=== PATIENT | female | born 1965 | race African-American/Black ===

== ENCOUNTER → 2016-05-12 | Outpatient (CLI) | payer MEDICAID | LOC: OD 11:27 | PROVIDERS: ATTEND Family Medicine | DX: R59.1 Generalized enlarged lymph nodes (principal) | CPT/HCPCS: 71020 ==

== ENCOUNTER 2017-04-03 07:57 | Emergency (ER) | payer SELFPAY ==
[2017-04-03 08:02] VITALS: BP 126/67
--- NOTE | 2017-04-03 08:19 | ER Document Report ---
ED Neck/Back Problem - General Chief Complaint: Back Pain Stated Complaint: BACK PAIN Time Seen by Provider: 04/03/17 08:17 Notes: She states that she has had back pain in the past. States that she felt a pop in the left lower back. Radiating. Moderate. Nothing seems to make it better or worse stiff in the morning but seems to get better throughout the day. No change in bowel or bladder function other than the fact that she does not want to have a bowel movement because she is afraid of pushing because it hurts when she has to bear down. No urinary retention. No numbness, tingling, loss of sensation of the lower extremities. No fever, chills, sweats. No IV drug use or risk for epidural hematoma or abscess. TRAVEL OUTSIDE OF THE [place] IN LAST 30 DAYS: No - HPI Patient complains to provider of: Pain Where: Home Timing: Constant Quality of pain: Achy Severity: Moderate Pain Level: 4 Context: denies: Became dizzy Associated symptoms: None Exacerbated by: Other - Movement, bending, walking - Related Data Allergies/Adverse Reactions: Penicillins Allergy (Severe, Verified 04/03/17 07:59) Anaphylaxis ibuprofen [From Motrin] Allergy (Mild, Verified 04/03/17 07:59) RASH, HIVES tramadol [Tramadol] Allergy (Mild, Verified 04/03/17 07:59) HIVES, RASH Past Medical History - General Information source: Patient - Social History Smoking Status: Former Smoker Frequency of alcohol use: None Drug Abuse: None Lives with: Family Family History: Reviewed & Not Pertinent - Past Medical History Cardiac Medical History: Denies: Hx Coronary Artery Disease, Hx Heart Attack, Hx Hypertension Pulmonary Medical History: Reports: Hx COPD Denies: Hx Asthma, Hx Bronchitis, Hx Pneumonia Neurological Medical History: Denies: Hx Cerebrovascular Accident, Hx Seizures Renal/ Medical History: Denies: Hx Peritoneal Dialysis Musculoskeltal Medical History: Reports Hx Arthritis Past Surgical History: Reports: Hx Breast Surgery - reduction, Hx Section, Hx Cholecystectomy, Hx Hysterectomy - Immunizations Hx Diphtheria, Pertussis, Tetanus Vaccination: Yes Review of Systems - Review of Systems Constitutional: No symptoms reported EENT: No symptoms reported Cardiovascular: No symptoms reported Respiratory: No symptoms reported Gastrointestinal: No symptoms reported Genitourinary: No symptoms reported Female Genitourinary: No symptoms reported Musculoskeletal: Back pain Skin: No symptoms reported Hematologic/Lymphatic: No symptoms reported Neurological/Psychological: No symptoms reported Physical Exam - Vital signs Vitals: Temp Pulse Resp BP Pulse Ox 97.9 F 105 H 18 126/67 H 100 04/03/17 08:01 04/03/17 08:01 04/03/17 08:01 04/03/17 08:01 04/03/17 08:01 Interpretation: Normal - General General appearance: Appears well, Alert - HEENT Head: Normocephalic, Atraumatic Eyes: Normal Pupils: PERRL - Respiratory Respiratory status: No respiratory distress Chest status: Nontender Breath sounds: Normal Chest palpation: Normal - Cardiovascular Rhythm: Regular Heart sounds: Normal auscultation Murmur: No - Abdominal Inspection: Normal Distension: No distension Bowel sounds: Normal Tenderness: Nontender Organomegaly: No organomegaly - Back Back: Normal, Tender - Left paraspinal muscles in the lumbar spine. No: Deformity/step-off, CVA tenderness, Vertebra tenderness, Scoliosis - Extremities General upper extremity: Normal inspection, Nontender, Normal color, Normal ROM , Normal temperature General lower extremity: Normal inspection, Nontender, Normal color, Normal ROM , Normal temperature, Normal weight bearing. No: Thanh's sign - Neurological Neuro grossly intact: Yes Cognition: Normal Orientation: AAOx4 Ruiz Coma Scale Eye Opening: Spontaneous Ruiz Coma Scale Verbal: Oriented [place] Coma Scale Motor: Obeys Commands Ruiz Coma Scale Total: 15 Speech: Normal Motor strength normal: LUE, RUE, LLE, RLE Sensory: Normal - Psychological Associated symptoms: Normal affect, Normal mood - Skin Skin Temperature: Warm Skin Moisture: Dry Skin Color: Normal Course - Re-evaluation Re-evalutation: 04/03/17 08:38 Review of patient's prescription monitoring reveals no large amount of controlled substance use. Discussed options with patient. We have decided at this time to try anti-inflammatories and muscle relaxants. Patient seems comfortable with this plan. States that she is allergic to ibuprofen but has had Toradol and aspirin and naproxen without issues so will prescribe some Naprosyn and Valium at this time. Patient advised not to use alcohol or drive while taking Valium. Advised to return for any red flag warning signs which were given. Will DC at this time. 04/03/17 09:28 Laboratory 04/03/17 08:43 Urine Color STRAW Urine Appearance SLIGHTLY-CLOUDY Urine pH 7.0 Ur Specific [facility] 1.005 Urine Protein NEGATIVE Urine Glucose (UA) NEGATIVE Urine Ketones NEGATIVE Urine Blood NEGATIVE Urine Nitrite NEGATIVE Urine Bilirubin NEGATIVE Urine Urobilinogen NEGATIVE Ur Leukocyte Esterase NEGATIVE Urine WBC (Auto) 2 Urine RBC (Auto) 3 Squamous Epi Cells Auto 5 Urine Mucus (Auto) RARE Urine Ascorbic Acid NEGATIVE - Vital Signs Vital signs: Temp Pulse Resp BP Pulse Ox 97.9 F 105 H 18 126/67 H 100 04/03/17 08:01 04/03/17 08:01 04/03/17 08:01 04/03/17 08:01 04/03/17 08:01 Discharge - Discharge Clinical Impression: Back pain Qualifiers: Back pain location: low back pain Chronicity: acute Back pain laterality: left Sciatica presence: without sciatica Qualified Code(s): M54.5 - Low back pain Condition: Stable Disposition: HOME, SELF-CARE Instructions: Ice Packs ([facility]), Low Back Pain ([facility]), Pain Medication Injection ( [facility]) Additional Instructions: Low Back Pain Three out of every four people will have an episode of disabling back pain during their lifetime. Most commonly the pain is due to straining of the muscles and ligaments in the low back. Usual treatment includes: (1) Rest on a firm surface. Avoid lying on your stomach. (2) Ice pack the painful area. After a few days, gentle heat may be used intermittently to relax the area, or ice packs can be continued. (3) Medication may be needed -- muscle relaxers and antiinflammatory medicines are commonly used. (4) As the back improves, exercises are prescribed to strengthen the back and abdominal muscles. Your doctor will advise you on the proper care for your back at each stage in your recovery. You may be better in a few days -- or healing may take several weeks. If new symptoms of a "herniated disc" (radiation of pain, numbness, or tingling down the back of the leg or weakness in the leg) occur, you should be re-examined. Further testing may be necessary. Prescriptions: Diazepam [Valium 5 mg Tablet] 5 mg PO BID 5 Days #15 tablet Naproxen [Naprosyn 375 Mg Tablet] 375 mg PO BID 15 Days #30 tablet
[2017-04-03] MEDS ORDERED: KETOROLAC TROMETHAMINE INJ/PF 30 MG/1 ML SDV IM ONE (08:35)
[2017-04-03 09:01] LABS: APPEARANCE,URINE SLIGHTLY-CLOUDY; BILIRUBIN,URINE NEGATIVE (NEGATIVE); COLOR,URINE STRAW; GLUCOSE, URINE NEGATIVE (NEGATIVE); KETONES,URINE NEGATIVE (NEGATIVE); LEUKOCYTE ESTERASE,URINE NEGATIVE (NEGATIVE); NITRITE,URINE NEGATIVE (NEGATIVE); PROTEIN,URINE NEGATIVE (NEGATIVE); URINE SPECIFIC GRAVITY 1.005; UROBILINOGEN,URINE NEGATIVE mg/dL (<2.0)
== END 2017-04-03 08:48 | disposition home or self-care (01) ==
LOC: ER 07:57
DX: M54.5 Low back pain (principal); Z88.6 Allergy status to analgesic agent; Z88.5 Allergy status to narcotic agent; Z87.892 Personal history of anaphylaxis; Z88.0 Allergy status to penicillin; Z87.891 Personal history of nicotine dependence
CPT/HCPCS: 99283; 96372; 81001; J1885

== ENCOUNTER → 2019-07-30 | Outpatient (CLI) | payer BC ==
--- NOTE | 2019-07-30 09:43 | ER [facility] ASSESSMENT REPORT ---
Intake - In the Last 14 days Have you traveled outside [place]?: No Have you been in close contact with someone CONFIRMED: No Worked in Healthcare?: Yes - Symptoms Subjective Fever([place] feverish): No Chills: No Muscule Aches: No Runny Nose: No Sore Throat: No Cough (New or worsening chronic cough): No Shortness of breath: No Nausea or Vomiting: No Headache: No Abdominal Pain: Yes Diarrhea(3 or more loose stools in last 24 hours): Yes - Do you have any of the following Chronic lung disease: Asthma or emphysema or COPD: Yes Chronic Lung Disease Comment: copd Cystic Fibrosis: No Diabetes: No High Blood Pressure: No Cardiovascular Disease: No Chronic Kidney Disease: No Chronic Liver Disease: No Chronic blood disorder like Sickle Cell Disease: No Weak immune system due to disease or medication: No Neurologic condition that limits movement: No Developmental delay - Moderate to Severe: No Recent (within past 2 weeks) or current : No Morbid Obesity (>100 pounds over ideal weight): No - Objective Temperature: 97.0 F Pulse Rate: 86 Respiratory Rate: 18 Blood Pressure: 114/62 O2 Sat by Pulse Oximetry: 99 Objective: Given above, testing performed: If Testing Performed: Test Specimen Type Sent to General - General Information source: Patient Notes: Patient presents to the [facility] for evaluation and screening for the COVID. Patient reports abdominal pain and diarrhea symptoms that started yesterday. Patient does have underlying history of COPD and does smoke. Patient works in [employer]. - HPI Onset: Yesterday Associated symptoms: Diarrhea. denies: Fever Exacerbated by: Denies Relieved by: Denies - Related Data Allergies/Adverse Reactions: Penicillins Allergy (Severe, Verified 04/03/17 07:59) Anaphylaxis ibuprofen [From Motrin] Allergy (Mild, Verified 04/03/17 07:59) RASH, HIVES tramadol [Tramadol] Allergy (Mild, Verified 04/03/17 07:59) HIVES, RASH Past Medical History - General Information source: Patient - Social History Smoking Status: Current Every Day Smoker Occupation: healthcare Family History: Reviewed & Not Pertinent - Past Medical History Cardiac Medical History: Denies: Hx Coronary Artery Disease, Hx Heart Attack, Hx Hypertension Pulmonary Medical History: Reports: Hx COPD Denies: Hx Asthma, Hx Bronchitis, Hx Pneumonia Neurological Medical History: Denies: Hx Cerebrovascular Accident, Hx Seizures Renal/ Medical History: Denies: Hx Peritoneal Dialysis Musculoskeletal Medical History: Reports Hx Arthritis Past Surgical History: Reports: Hx Breast Surgery - reduction, Hx Section, Hx Cholecystectomy, Hx Hysterectomy Physical Exam - Notes Notes: Full physical exam could not be performed due to covid 19 isolation protocols. Constitutional: Nontoxic appearance, no acute distress - General General appearance: Appears well, Alert In distress: None - HEENT Head: Normocephalic, Atraumatic Nasal: Normal Mouth/Lips: Normal Pharynx: Normal. No: Erythema, Exudate Neck: Normal, Supple. No: Lymphadenopathy - Respiratory Respiratory status: No respiratory distress Chest status: Nontender Breath sounds: Normal. No: Rales, Rhonchi, Stridor, Wheezing Chest palpation: Normal - Cardiovascular Rhythm: Regular Heart sounds: S1 appreciated, S2 appreciated - Abdominal Distension: No distension - Extremities General upper extremity: Normal inspection, Normal ROM General lower extremity: Normal inspection, Normal ROM - Neurological Neuro grossly intact: Yes Cognition: Normal Orientation: AAOx4 Ruiz Coma Scale Eye Opening: Spontaneous Ruiz Coma Scale Verbal: Oriented Ruiz Coma Scale Motor: Obeys Commands Ruiz Coma Scale Total: 15 - Psychological Associated symptoms: Normal affect, Normal mood - Skin Skin Temperature: Warm Skin Moisture: Dry Skin Color: Normal Diagnostic Results Laboratory Results: The patient was evaluated during the global Covid 19 pandemic, and that diagnosis was suspected/considered upon their initial presentation. Their evaluation, treatment and testing was consistent with current guidelines for patients who present with complaints or symptoms that may be related to Covid 19. Patient presents with upper respiratory symptoms worrisome for possible Covid 19. Patient does not have emergency worrying symptoms such as difficulty breathing, shortness of breath, chest pain, pressure, confusion or cyanosis. Patient appears suitable for discharge as they are not of an advanced age, do not have any chronic medical conditions such as diabetes, CAD, immune deficiency, chronic lung disease or chronic kidney disease. Patient's vital signs are stable and patient is nontoxic in appearance. Good return precautions have been discussed with patient, patient verbalized understanding and is agreeable with discharge plan of care at this time. Patient Education/Counseling Counseling/Education: Patient was provided with discharge information including: As a person under investigation for Covid 19, the [facility] of Health and Human Services, division of public health advises you to adhere to the following guidance until your test results are reported to you. If your test result is positive, you will receive additional information from your provider and your local health department at that time. Remain at home until you are cleared by the health provider or public health authorities. Keep a log of visitors to your home, notify any visitors to your home of your isolation status. If you plan to move to a new address or leave the county, notify the local health department in your County. Call your doctor or seek care if you have an urgent medical need. Before seeking medical care, call ahead to get instructions from the provider before arriving at the medical office clinic or hospital. Notify them that you are being tested for the virus that causes Covid 19 so that arrangements can be made, as necessary, to prevent transmission to others in the healthcare setting. Next, notify the local health department in your county. If a medical emergency arises and you need to call 911, inform the first responders that you are being tested for the virus that causes Covid 19. Next, notify the local health department in your county. [facility] Discharge - Discharge Clinical Impression: covid 9 screening Condition: Stable Disposition: Home; Selfcare
[2019-07-30 10:24] VITALS: BP 114/62
[2019-07-30 11:48] LABS: A TYPE INFLUENZA AG NEGATIVE (NEGATIVE); B INFLUENZA AG NEGATIVE (NEGATIVE)
== END ==
LOC: RDC 09:40
PROVIDERS: ATTEND Nurse Practitioner Family
DX: J06.9 Acute upper respiratory infection, unspecified (principal); Z20.828 Contact with and (suspected) exposure to other viral communicable diseases; R50.9 Fever, unspecified; R06.02 Shortness of breath; J02.9 Acute pharyngitis, unspecified; R11.2 Nausea with vomiting, unspecified; R10.9 Unspecified abdominal pain; R19.7 Diarrhea, unspecified; R51 Headache; J44.9 Chronic obstructive pulmonary disease, unspecified; R09.89 Other specified symptoms and signs involving the circulatory and respiratory systems; M79.10 Myalgia, unspecified site; M32.9 Systemic lupus erythematosus, unspecified; F17.200 Nicotine dependence, unspecified, uncomplicated; Z88.0 Allergy status to penicillin; Z88.6 Allergy status to analgesic agent; Z88.8 Allergy status to other drugs, medicaments and biological substances
CPT/HCPCS: 87070; 87635; 87804; 87880; 99211

== ENCOUNTER 2019-10-03 17:24 | Emergency (ER) | payer BC ==
--- NOTE | 2019-10-03 17:47 | ER Document Report ---
ED Medical Screen (RME) - General Chief Complaint: Abdominal Pain Stated Complaint: ABDOMINAL PAIN Time Seen by Provider: 10/03/19 17:40 Primary Care Provider: MAI CUELLAR [Primary Care Provider] - Follow up as needed Mode of Arrival: Ambulatory Information source: Patient Notes: HPI; 53-year-old female presents to the emergency room complaining of right sided abdominal pain for the past 4 to 5 days. Describes it as sharp and stabbing. Also has a history of constipation. States her last bowel movement was 3 days ago. States she was seen at the [facility] earlier today and referred to the emergency room. Has been taking Tylenol with minimal relief. Denies any nausea or vomiting. No urinary symptoms. No fevers. PE: Alert and oriented x3. Mild distress noted. Lungs are clear to auscultation without rales, rhonchi, wheezes. Heart: Regular rate and rhythm without murmurs, rubs, gallops. No CVA tenderness noted bilaterally. Tenderness on palpation to right mid abdomen. Unable to do full exam in triage. I have greeted and performed a rapid initial assessment of this patient. A comprehensive ED assessment and evaluation of the patient, analysis of test results and completion of the medical decision making process will be conducted by additional ED providers. I have specifically instructed the patient or family members with the patient to immediately return to any nursing staff should anything change in the patient's condition or with their chief complaint. TRAVEL OUTSIDE OF THE [place] IN LAST 30 DAYS: No - Related Data Allergies/Adverse Reactions: Penicillins Allergy (Severe, Verified 04/03/17 07:59) Anaphylaxis ibuprofen [From Motrin] Allergy (Mild, Verified 04/03/17 07:59) RASH, HIVES tramadol [Tramadol] Allergy (Mild, Verified 04/03/17 07:59) HIVES, RASH Past Medical History - Past Medical History Cardiac Medical History: Denies: Hx Coronary Artery Disease, Hx Heart Attack, Hx Hypertension Pulmonary Medical History: Reports: Hx COPD Denies: Hx Asthma, Hx Bronchitis, Hx Pneumonia Neurological Medical History: Denies: Hx Cerebrovascular Accident, Hx Seizures Renal/ Medical History: Denies: Hx Peritoneal Dialysis Musculoskeltal Medical History: Reports Hx Arthritis Past Surgical History: Reports: Hx Breast Surgery - reduction, Hx Section, Hx Cholecystectomy, Hx Hysterectomy - Immunizations Hx Diphtheria, Pertussis, Tetanus Vaccination: Yes Physical Exam - Vital signs Vitals: Temp Pulse Resp BP Pulse Ox 98.4 F 84 19 130/68 H 98 10/03/19 17:28 10/03/19 17:28 10/03/19 17:28 10/03/19 17:28 10/03/19 17:28 Course - Vital Signs Vital signs: Temp Pulse Resp BP Pulse Ox 98.4 F 84 19 130/68 H 98 10/03/19 17:28 10/03/19 17:28 10/03/19 17:28 10/03/19 17:28 10/03/19 17:28 Doctor's Discharge - Discharge Referrals: LOCALMD,NO [Primary Care Provider] - Follow up as needed
[2019-10-03 18:31] LABS: ABSOLUTE BASOPHILS # (AUTO) 0.2 10^3/uL (0.0-0.2); ABSOLUTE EOSINOPHILS # (AUTO) 0.1 10^3/uL (0.0-0.6); ABSOLUTE LYMPHOCYTES (AUTO) 3.2 10^3/uL (0.5-4.7); ABSOLUTE MONOCYTES (AUTO) 0.6 10^3/uL (0.1-1.4); ABSOLUTE NEUT (AUTO) 2.9 10^3/uL (1.7-8.2); BASOPHILS % (AUTO) 2.3 % (0-2); EOSINOPHILS % (AUTO) 2.1 % (0-6); HEMATOCRIT 29.2 % (36.0-47.0); HEMOGLOBIN 9.7 g/dL (12.0-15.5); MEAN CORPUSCULAR HEMOGLOBIN 23.4 pg (27.0-33.4); MEAN CORPUSCULAR HGB CONC 33.1 g/dL (32.0-36.0); MEAN CORPUSCULAR VOLUME 71 fl (80-97); MONOCYTES % (AUTO) 8.4 % (3-13); PLATELET COUNT 324 10^3/uL (150-450); RED BLOOD COUNT 4.14 10^6/uL (3.72-5.28); RED CELL DISTRIBUTION WIDTH 19.5 % (11.5-14.0); SEGMENTED NEUTROPHILS % (AUTO) 41.2 % (42-78); TOTAL CELLS COUNTED % (AUTO) 100 %; WHITE BLOOD COUNT 6.9 10^3/uL (4.0-10.5)
[2019-10-03 18:39] LABS: ALBUMIN 4.5 g/dL (3.5-5.0); ALKALINE PHOSPHATASE 82 U/L (38-126); ANION GAP 6 (5-19); ASPARTATE AMINO TRANSFERASE 31 U/L (14-36); BILIRUBIN,DIRECT 0.1 mg/dL (0.0-0.4); BILIRUBIN,TOTAL 0.4 mg/dL (0.2-1.3); BLOOD UREA NITROGEN 11 mg/dL (7-20); CALCIUM 9.1 mg/dL (8.4-10.2); CARBON DIOXIDE 29 mmol/L (22-30); CHLORIDE 102 mmol/L (98-107); GLUCOSE 85 mg/dL (75-110); POTASSIUM 4.4 mmol/L (3.6-5.0); TOTAL PROTEIN 7.6 g/dL (6.3-8.2)
[2019-10-03 18:40] LABS: APPEARANCE,URINE SLIGHTLY-CLOUDY; BILIRUBIN,URINE NEGATIVE (NEGATIVE); COLOR,URINE YELLOW; GLUCOSE, URINE NEGATIVE (NEGATIVE); KETONES,URINE NEGATIVE (NEGATIVE); LEUKOCYTE ESTERASE,URINE MODERATE (NEGATIVE); NITRITE,URINE NEGATIVE (NEGATIVE); PROTEIN,URINE NEGATIVE (NEGATIVE); URINE SPECIFIC GRAVITY 1.013; UROBILINOGEN,URINE NEGATIVE mg/dL (<2.0)
--- NOTE | 2019-10-03 20:27 | ER Document Report ---
ED GI/ - General Chief Complaint: Abdominal Pain Stated Complaint: ABDOMINAL PAIN Time Seen by Provider: 10/03/19 17:40 Primary Care Provider: MAI CUELLAR [NO LOCAL MD] - Follow up as needed Mode of Arrival: Ambulatory Notes: Patient is a 53-year-old female that comes emergency department for chief complaint of right mid abdominal pain. Patient has been having the pain in the area for the past 4 to 5 days or so. She states occasionally it is sharp and stabbing. She states her last bowel movement was 3 days ago, she felt like she was constipated, she took [id number] stool softeners twice a day for the past 3 days with no results. She was seen at primary care earlier today and referred to the emergency department for the abdominal pain. She denies nausea, vomiting, fever, flank pain, chest pain. She has had a gastric bypass, cholecystectomy, . TRAVEL OUTSIDE OF THE [place] IN LAST 30 DAYS: No - Related Data Allergies/Adverse Reactions: Penicillins Allergy (Severe, Verified 04/03/17 07:59) Anaphylaxis ibuprofen [From Motrin] Allergy (Mild, Verified 04/03/17 07:59) RASH, HIVES tramadol [Tramadol] Allergy (Mild, Verified 04/03/17 07:59) HIVES, RASH Past Medical History - General Information source: Patient - Social History Smoking Status: Current Every Day Smoker Frequency of alcohol use: None Drug Abuse: None Lives with: Family Family History: Reviewed & Not Pertinent - Past Medical History Cardiac Medical History: Denies: Hx Coronary Artery Disease, Hx Heart Attack, Hx Hypertension Pulmonary Medical History: Reports: Hx COPD Denies: Hx Asthma, Hx Bronchitis, Hx Pneumonia Neurological Medical History: Denies: Hx Cerebrovascular Accident, Hx Seizures Renal/ Medical History: Denies: Hx Peritoneal Dialysis Musculoskeletal Medical History: Reports Hx Arthritis Past Surgical History: Reports: Hx Breast Surgery - reduction, Hx Section, Hx Cholecystectomy, Hx Hysterectomy - Immunizations Hx Diphtheria, Pertussis, Tetanus Vaccination: Yes Review of Systems - Review of Systems Constitutional: No symptoms reported EENT: No symptoms reported Cardiovascular: No symptoms reported Respiratory: No symptoms reported Gastrointestinal: See HPI Genitourinary: No symptoms reported Female Genitourinary: No symptoms reported Musculoskeletal: No symptoms reported Skin: No symptoms reported Hematologic/Lymphatic: No symptoms reported Neurological/Psychological: No symptoms reported Physical Exam - Vital signs Vitals: Temp Pulse Resp BP Pulse Ox 98.4 F 84 19 130/68 H 98 10/03/19 17:28 10/03/19 17:28 10/03/19 17:28 10/03/19 17:28 10/03/19 17:28 - Notes Notes: GENERAL: Alert, interacts well. No acute distress. Talkative and well-appearing HEAD: Normocephalic, atraumatic. EYES: Pupils equal, round, and reactive to light. Extraocular movements intact. ENT: Oral mucosa moist, tongue midline. Oropharynx unremarkable. Airway patent. NECK: Full range of motion. Supple. Trachea midline. No lymphadenopathy. LUNGS: Clear to auscultation bilaterally, no wheezes, rales, or rhonchi. No respiratory distress. Non-tender chest wall. HEART: Regular rate and rhythm. No murmur ABDOMEN: Mild, nonspecific, generalized tenderness over the abdomen. No guarding, distention, rigidity, rebound tenderness. Bowel sounds present throughout. GENITOURINARY: Deferred EXTREMITIES: Moves all 4 extremities spontaneously. No edema, normal radial and dorsalis pedis pulses bilaterally. No cyanosis. BACK: no cervical, thoracic, lumbar midline tenderness. No saddle anesthesia, normal distal neurovascular exam. Moves all extremities in full range of motion. NEUROLOGICAL: Alert and oriented x3. Normal speech. Cranial nerves II through XII grossly intact. Strength 5/5 in all extremities. PSYCH: Normal affect, normal mood. SKIN: Warm, dry, normal turgor. No rashes or lesions noted. Course - Re-evaluation Re-evalutation: Patient has some generalized tenderness over the abdomen on exam but this is very mild. She is talkative, alert, well-appearing. Vital signs unremarkable. CBC unremarkable, chemistry unremarkable, urine shows moderate leukocyte anthony ase and a few white blood cells but also some squamous epithelials. Nonspecific. I did review CAT scan from triage and this shows moderate retained stool, no acute findings. There is question of biliary ductal dilatation, however patient is status post cholecystectomy, she has normal bilirubin, alk phos, lipase, and LFTs. Stool is not really in the descending colon or rectal vault. Discussed details and options with patient. Patient elected for treatment of possible UTI, she will also be treated orally with stool softeners instead up with an enema. She states that she really needs something strong and has tried stool softeners before without relief. She will be provided with lactulose, she will follow-up with gastroenterology, discussed return precautions in detail. Patient states appreciation and agreement with plan. Stable and well-appearing at time of discharge. - Vital Signs Vital signs: Temp Pulse Resp BP Pulse Ox 98.0 F 66 14 108/56 L 100 10/03/19 22:31 10/03/19 22:31 10/03/19 22:31 10/03/19 22:31 10/03/19 22:31 - Laboratory Result Diagrams: 10/03/19 18:05 10/03/19 18:05 Laboratory results interpreted by me: 10/03/19 10/03/19 18:05 18:05 Hgb 9.7 L Hct 29.2 L MCV 71 L MCH 23.4 L RDW 19.5 H Lymph % (Auto) 46.0 H Baso % (Auto) 2.3 H Seg Neutrophils % 41.2 L Ur Leukocyte Esterase MODERATE H Discharge - Discharge Clinical Impression: Abdominal pain Qualifiers: Abdominal location: generalized Qualified Code(s): R10.84 - Generalized abdominal pain Condition: Stable Disposition: HOME, SELF-CARE Additional Instructions: Your work-up does not show any concerning findings at this time except for possible developing urinary tract infection and retained stool in the earlier part of your large intestine as we discussed. Stop the current stool softener, take lactulose as prescribed, take Bentyl if needed for cramping, call your insurance writer for additional follow-up and management. Take the Keflex as prescribed to completion. Return if you worsen including severe worsening pain, vomiting, fever, or any other concerning symptoms. Prescriptions: Dicyclomine HCl [Bentyl 20 mg Tablet] 20 mg PO QID PRN #20 tablet PRN Reason: Cephalexin Monohydrate [Keflex 500 mg Capsule] 500 mg PO BID 5 Days #10 capsule Lactulose 15 ml PO BID #150 ml Referrals: LOCALMD,NO [NO LOCAL MD] - Follow up as needed
[2019-10-03] MEDS ORDERED: MORPHINE SULFATE 10 MG/ML INJ IV ONE (20:28)
[2019-10-03] MEDS ORDERED: ONDANSETRON HCL INJ/PF 4 MG/2 ML SDV IV ONE (20:28)
[2019-10-03] MEDS ORDERED: NORMAL SALINE 1000 ML 1,000 ML IV ONE (20:30)
--- NOTE | 2019-10-03 21:36 | RADIOLOGY REPORT (SQ) ---
EXAM DESCRIPTION: CT ABDOMEN PELVIS WITH IV CONTRAST COMPLETED DATE/TME: 10/03/2019 00:00 CLINICAL HISTORY: 53 years, Female, abdominal pain COMPARISON: None. TECHNIQUE: Postcontrast images of the abdomen and pelvis were obtained with oral contrast and 100 mL Omnipaque 350 intravenously. Images stored on PACS. All CT scanners at this facility use dose modulation, iterative reconstruction, and/or weight based dosing when appropriate to reduce radiation dose to as low as reasonably achievable (ALARA). [facility]: Dose Right [facility]: CareDose [facility]: Dose Right [facility]: Teradose 4D [facility]: Smart IDRI ([facility]) LIMITATIONS: None. FINDINGS: The visualized lung bases are clear. There is a 10 mm hypodense lesion within the posterior right hepatic lobe. On the initial series, there is some peripheral nodular enhancement and this lesion becomes nearly imperceptible on the delayed images, most consistent with an incidental hemangioma. The spleen, kidneys, adrenal glands, and pancreas are within normal limits. Patient is status post cholecystectomy. There is biliary ductal dilation. Common bile duct measures 10 mm in caliber, likely secondary to the absent gallbladder although clinical lab correlation is suggested to exclude biliary ductal obstruction. Patient is status post gastric bypass surgery. There is no evidence of bowel obstruction, free air, or free fluid. No enlarged lymph nodes are seen. The appendix is nonvisualized. There is a solitary surgical clip in the right pelvis which could be lost from the cholecystectomy or due to appendectomy. Nonetheless, I see no secondary sign of acute appendicitis. Patient is status post hysterectomy. There chronic appearing compression deformities at L1, L3, L4, and L5. IMPRESSION: Biliary ductal dilation, likely due to the absent gallbladder, however this can be correlated with clinical presentation and lab results to exclude biliary ductal obstruction. Additional, chronic appearing findings as above. TECHNICAL DOCUMENTATION: Quality ID # [id number]: Final reports with documentation of one or more dose reduction techniques (e.g., Automated exposure control, adjustment of the mA and/or kV according to patient size, use of iterative reconstruction technique) copyright 2011 [employer]- All Rights Reserved
[2019-10-03 22:34] VITALS: BP 108/56
--- NOTE | 2019-10-04 15:09 | ER Document Report ---
Doctor's Note Notes: 10/04/19 15:08 [facility]ceived call from [facility] concerning patient's prescription for Keflex. Patient has allergies to penicillin and amoxicillin and is not comfortable taking a cephalosporin. Prescription was changed to Macrobid 100 mg 1 p.o. twice daily #14.
== END 2019-10-03 22:35 | disposition home or self-care (01) ==
LOC: ER 17:24
DX: K59.00 Constipation, unspecified (principal); K82.8 Other specified diseases of gallbladder; R10.84 Generalized abdominal pain; R10.817 Generalized abdominal tenderness; F17.200 Nicotine dependence, unspecified, uncomplicated; J44.9 Chronic obstructive pulmonary disease, unspecified; Z98.84 Bariatric surgery status; Z90.49 Acquired absence of other specified parts of digestive tract; Z87.892 Personal history of anaphylaxis; Z88.0 Allergy status to penicillin; Z88.8 Allergy status to other drugs, medicaments and biological substances; Z88.6 Allergy status to analgesic agent; Z90.710 Acquired absence of both cervix and uterus
CPT/HCPCS: 99284; 96361; 96374; 96375; 36415; 87086; 83690; 85025; 87088; 80053; 81001; 87186; 74177; J2270; J2405; J7030